=== PATIENT | male | born 1950 | race Caucasian/White ===

== ENCOUNTER 2016-10-30 16:07 | Emergency (ER) | payer OTHER ==
[2016-10-30 16:25] VITALS: BP 183/93
[2016-10-30] MEDS ORDERED: Ondansetron 4 MG/2 ML SDV IVPUSH ONE (16:27)
[2016-10-30] MEDS ORDERED: Sodium Chloride 0.9% 10 ML Syringe FLUSH PRN (16:27)
[2016-10-30] MEDS ORDERED: HYDROmorphone 1 MG/ML Syringe IVPUSH ONE (16:28)
[2016-10-30] MEDS ORDERED: Sodium Chloride 0.9% 1,000 ML IV SCH (16:30)
--- NOTE | 2016-10-30 17:55 | US ---
Limited abdominal ultrasound: Multiple real-time images of the upper right abdomen were obtained. Comparison: Previous abdominal ultrasound of 03/09/16. Liver is slightly echogenic raising the possibility of fatty infiltration. Several sludge balls are seen within the gallbladder. I do not see any definite shadowing gallstones. No gallbladder wall thickening or biliary duct dilatation is seen. Pancreas is incompletely seen. Visualized portions of the pancreas are within normal limits. Right kidney shows no hydronephrosis or mass and has a length of 9.7 cm. Impression: 1. Possible fatty infiltration within the liver. 2. 2 sludge balls within the gallbladder. Prior ultrasound of 03/09/16 showed what appeared to be a single large gallstone with shadowing which interestingly is not appreciated on current exam. 3. Other portions of the right upper quadrant abdominal ultrasound are unremarkable. Diagnostic code #3
[2016-10-30] MEDS ORDERED: HYDROmorphone 0.5 MG/0.5 ML Syringe IVPUSH ONE (18:00)
--- NOTE | 2016-10-30 18:37 | EDM.PDOC ---
ED HPI GENERAL MEDICAL PROBLEM - General Chief Complaint: Abdominal Pain Stated Complaint: [facility] Time Seen by Provider: 10/30/16 16:21 Source of Information: Reports: Patient, Family History Limitations: Reports: No Limitations - History of Present Illness INITIAL COMMENTS - FREE TEXT/NARRATIVE: The patient presents with RUQ abdominal pain. The pain started 2 days ago. It is worse after he eats. He has nausea with it but no vomiting. He has no fever , chills, cough, chest pain, shortness of breath. He has a history of a gallstone. He had an US in February and it showed one. He had no trouble since. He has no diarrhea and no dysuria. Onset: Sudden Duration: Day(s): (2) Location: Reports: Abdomen Quality: Reports: Sharp Severity: Moderate Improves with: Reports: None Worsens with: Reports: None Context: Reports: Activity (After eating and eating makes it worse) Associated Symptoms: Reports: Nausea/Vomiting. Denies: Chest Pain, Cough, Fever /Chills, Shortness of Breath Right Upper Abdomen Pain Score (Numeric/FACES): 9 - Related Data Allergies Allergy/AdvReac Type Severity Reaction Status Date / Time No Known Allergies Allergy Verified 10/30/16 16:24 Home Meds: Home Meds Cholecalciferol (Vitamin D3) [Vitamin D3] 1,000 unit PO DAILY 10/30/16 [History] Ondansetron [Zofran ODT] 4 mg PO Q6H PRN #20 tab.dis 10/30/16 [Rx] Ranitidine [Zantac] 150 mg PO BID PRN 10/30/16 [History] oxyCODONE HCl/Acetaminophen [Percocet 5-325 mg Tablet] 1 - 2 each PO Q6HR PRN # 20 tablet 10/30/16 [Rx] Past Medical History HEENT History: Reports: Cataract, Impaired Vision Cardiovascular History: Reports: Hypertension Gastrointestinal History: Reports: Cholelithiasis, GERD - Past Surgical History HEENT Surgical History: Reports: Cataract Surgery Social & Family History - Tobacco Use Smoking Status *Q: Current Every Day Smoker Years of Tobacco use: 35 Packs/Tins Daily: 1 Second Hand Smoke Exposure: No - Caffeine Use Caffeine Use: Reports: Coffee - Recreational Drug Use Recreational Drug Use: No Drug Use in Last 12 Months: No ED ROS GENERAL - Review of Systems Review Of Systems: See Below Constitutional: Reports: No Symptoms HEENT: Reports: No Symptoms Respiratory: Reports: No Symptoms Cardiovascular: Reports: No Symptoms Endocrine: Reports: No Symptoms GI/Abdominal: Reports: Abdominal Pain (RUQ) : Reports: No Symptoms Musculoskeletal: Reports: No Symptoms ED EXAM, GI/ABD - Physical Exam Exam: See Below Exam Limited By: No Limitations General Appearance: Alert, No Apparent Distress Ears: Normal External Exam Nose: Normal Inspection Head: Atraumatic, Normocephalic Neck: Normal Inspection Respiratory/Chest: No Respiratory Distress, Lungs Clear, Normal Breath Sounds Cardiovascular: Regular Rate, Rhythm, No Edema, No Murmur GI/Abdominal Exam: Soft, No Organomegaly, No Mass, Tender (Moderate to the RUQ) Course - Vital Signs Last Recorded V/S: Last Vital Signs Temp 98.1 F 10/30/16 16:19 Pulse 52 L 10/30/16 16:19 Resp 16 10/30/16 16:19 BP 183/93 H 10/30/16 16:19 Pulse Ox 95 10/30/16 16:19 - Orders/Labs/Meds Orders: Active Orders 24 hr Category Date Time Status Peripheral IV Care [RC] . DIRECTED Care 10/30/16 16:27 Active Sodium Chloride 0.9% [Normal Saline] 1,000 ml Med 10/30/16 16:30 Active IV ASDIRECTED Sodium Chloride 0.9% [Saline Flush] Med 10/30/16 16:27 Active 10 ml FLUSH ASDIRECTED PRN ED Antiemetic Medication Reflex [OM.PC] Stat Oth 10/30/16 16:27 Ordered Peripheral IV Insertion Adult [OM.PC] Stat Oth 10/30/16 16:27 Ordered Medication Orders Sodium Chloride (Normal Saline) 1,000 mls @ 125 mls/hr IV ASDIRECTED JUAN Last Admin: 10/30/16 16:42 Dose: 125 mls/hr Sodium Chloride (Saline Flush) 10 ml FLUSH ASDIRECTED PRN PRN Reason: Keep Vein Open Last Admin: 10/30/16 18:21 Dose: 10 ml Labs: Laboratory Tests 10/30/16 10/30/16 Range/Units 17:17 17:17 WBC 10.15 H (4.23-9.07) K/mm3 RBC 4.74 (4.63-6.08) M/mm3 Hgb 15.8 (13.7-17.5) gm/L Hct 45.2 (40.1-51.0) % MCV 95.4 H (79.0-92.2) fl MCH 33.3 H (25.7-32.2) pg MCHC 35.0 (32.2-35.5) g/dl RDW Std Deviation 46.0 H (35.1-43.9) fL Plt Count 232 (163-337) K/mm3 MPV 9.5 (9.4-12.3) fl Neut % (Auto) 80.4 H (34.0-67.9) % Lymph % (Auto) 12.0 L (21.8-53.1) % [place] % (Auto) 7.2 (5.3-12.2) % Eos % (Auto) 0.1 L (0.8-7.0) Baso % (Auto) 0.2 (0.1-1.2) % Neut # (Auto) 8.16 H (1.78-5.38) K/mm3 Lymph # (Auto) 1.22 L (1.32-3.57) K/mm3 [place] # (Auto) 0.73 (0.30-0.82) K/mm3 Eos # (Auto) 0.01 L (0.04-0.54) K/mm3 Baso # (Auto) 0.02 (0.01-0.08) K/mm3 Sodium 138 (136-145) mEq/L Potassium 4.2 (3.5-5.1) mEq/L Chloride 102 (98-107) mEq/L Carbon Dioxide 26 (21-32) mEq/L Anion Gap 14.2 (5-15) BUN 14 (7-18) mg/dL Creatinine 1.1 (0.7-1.3) mg/dL Est Cr Clr Drug Dosing 66.95 mL/min Estimated GFR (MDRD) > 60 (>60) mL/min BUN/Creatinine Ratio 12.7 L (14-18) Glucose 131 H (80-115) mg/dL Calcium 9.0 (8.5-10.1) mg/dL Total Bilirubin 0.5 (0.2-1.0) mg/dL AST 50 H (15-37) U/L ALT 79 H (16-63) U/L Alkaline Phosphatase 87 (46-116) U/L Total Protein 7.2 (6.4-8.2) g/dl Albumin 3.5 (3.4-5.0) g/dl Globulin 3.7 gm/dL Albumin/Globulin Ratio 1.0 (1-2) Lipase 130 (73-393) U/L Meds: Medications Generic Name Dose Route Start Last Admin Trade Name Freq PRN Reason Stop Dose Admin Sodium Chloride 1,000 mls @ 125 mls/hr 10/30/16 16:30 10/30/16 16:42 Normal Saline IV 125 mls/hr ASDIRECTED JUAN Administration Sodium Chloride 10 ml 10/30/16 16:27 10/30/16 18:21 Saline Flush FLUSH 10 ml ASDIRECTED PRN Administration Keep Vein Open Discontinued Medications Generic Name Dose Route Start Last Admin Trade Name Freq PRN Reason Stop Dose Admin Hydromorphone HCl 1 mg 10/30/16 16:28 10/30/16 16:42 Dilaudid IVPUSH 10/30/16 16:29 1 mg ONETIME ONE Administration Hydromorphone HCl 0.5 mg 10/30/16 18:00 10/30/16 18:11 Dilaudid IVPUSH 10/30/16 18:01 0.5 mg ONETIME ONE Administration Ondansetron HCl 4 mg 10/30/16 16:27 10/30/16 16:43 Zofran IVPUSH 10/30/16 16:28 4 mg ONETIME ONE Administration - Re-Assessments/Exams Free Text/Narrative Re-Assessment/Exam: 10/30/16 18:34 I ordered an IV NS at 125mL/hr, zofran 4mg IV and dilaudid. His WBC is elevated at 10.15. His glucose was elevated at 131. His AST was slightly elevated at 50 and his ALT was elevated at 79. His lipase was negative. I did an US and it showed possible fatty infiltration within the liver. 2 sludge balls within the gallbladder. He had more pain so I gave him more dilaudid. 10/30/16 18:43 He has nausea so I will give him some reglan 10mg IV. Departure - Departure Time of Disposition: 18:45 Disposition: Home, Self-Care 01 Condition: Good Clinical Impression: Sludge in gallbladder, Biliary colic Abdominal pain Qualifiers: Abdominal location: right upper quadrant Qualified Code(s): R10.11 - Right upper quadrant pain - Discharge Information Prescriptions: oxyCODONE HCl/Acetaminophen [Percocet 5-325 mg Tablet] 1 - 2 each PO Q6HR PRN # 20 tablet PRN Reason: Pain Ondansetron [Zofran ODT] 4 mg PO Q6H PRN #20 tab.dis PRN Reason: Nausea/Vomiting Referrals: Kylah Patterson DO [Primary Care Provider] - Forms: ED Department Discharge Additional Instructions: Avoid fried fatty foods. Take the percocet as needed for pain. Take the zofran for nausea and vomiting. - My Orders Last 24 Hours: My Active Orders 10/30/16 16:27 Peripheral IV Care [RC] . DIRECTED Sodium Chloride 0.9% [Saline Flush] 10 ml FLUSH ASDIRECTED PRN ED Antiemetic Medication Reflex [OM.PC] Stat Peripheral IV Insertion Adult [OM.PC] Stat 10/30/16 16:30 Sodium Chloride 0.9% [Normal Saline] 1,000 ml IV ASDIRECTED - Assessment/Plan Last 24 Hours: My Active Orders 10/30/16 16:27 Peripheral IV Care [RC] . DIRECTED Sodium Chloride 0.9% [Saline Flush] 10 ml FLUSH ASDIRECTED PRN ED Antiemetic Medication Reflex [OM.PC] Stat Peripheral IV Insertion Adult [OM.PC] Stat 10/30/16 16:30 Sodium Chloride 0.9% [Normal Saline] 1,000 ml IV ASDIRECTED
[2016-10-30] MEDS ORDERED: Metoclopramide 10 MG/2 ML SDV IVPUSH ONE (18:46)
== END 2016-10-30 19:10 | disposition home or self-care (01) ==
LOC: JD.ED 16:07
DX: K82.8 Other specified diseases of gallbladder (principal); K80.50 Calculus of bile duct without cholangitis or cholecystitis without obstruction; H54.7 Unspecified visual loss; I10 Essential (primary) hypertension; K21.9 Gastro-esophageal reflux disease without esophagitis; F17.210 Nicotine dependence, cigarettes, uncomplicated; Z79.899 Other long term (current) drug therapy
CPT/HCPCS: 36415; 76705; 80053; 83690; 85025; 96361; 96374; 96375; 96376; 99284; J1170; J2405; J2765; J7040; J7050

== ENCOUNTER 2018-12-23 08:46 | Day surgery (SDC) | payer OTHER ==
[~2018-12-23 08:46] MED LIST: Bupivacaine 0.5% 30 ML SDV ONE; Iopamidol 612 MG/ML 50 ML SDV ONE; Lactated Ringers 1,000 ML IV SCH; Lidocaine 1%/Sod Bicarbonate in NS 8.4% 1 ML Syringe IDERM PRN; Sodium Chloride 0.9% 10 ML Syringe FLUSH PRN; Sodium Chloride 0.9% 50 ML SDV ONE
[2018-12-23] MEDS ORDERED: Propofol 200 MG/20 ML SDV ONE (09:00)
[2018-12-23] MEDS ORDERED: Lidocaine 1% 4 ML ONE (09:01)
[2018-12-23] MEDS ORDERED: Rocuronium 50 MG/5 ML Vial ONE (09:01)
[2018-12-23] MEDS ORDERED: fentaNYL 250 MCG/5 ML SDV ONE (09:02)
[2018-12-23] MEDS ORDERED: Midazolam 1 MG/ML 2 ML SDV ONE (09:03)
--- NOTE | 2018-12-23 09:17 | PCM.PREANE ---
Preanesthetic Assessment - Anesthesia/Transfusion/Family Hx Anesthesia History: Prior Anesthesia Without Reaction Family History of Anesthesia Reaction: No Transfusion History: No Prior Transfusion(s) - Review of Systems General: No Symptoms Pulmonary: Shortness of Breath Cardiovascular: No Symptoms Gastrointestinal: No Symptoms Neurological: No Symptoms Other: Reports: None - Physical Assessment NPO Status Date: 12/22/18 NPO Status Time: 22:00 ASA Class: 2 Mental Status: Alert & Oriented x3 Airway Class: Mallampati = 2 Dentition: Reports: Dentures (upper) Thyro-Mental Finger Breadths: 3 Mouth Opening Finger Breadths: 3 ROM/Head Extension: Full Lungs: Clear to Auscultation, Normal Respiratory Effort (SOB with activity) Cardiovascular: Regular Rate, Regular Rhythm - Allergies Allergies/Adverse Reactions: Allergies Allergy/AdvReac Type Severity Reaction Status Date / Time No Known Allergies Allergy Verified 12/22/18 09:59 - Anesthesia Plan Beta Eren: Metoprolol Med Last Dose Date: 12/22/18 Med Last Dose Time: 05:00 - Acknowledgements Anesthesia Type Planned: General Anesthesia Pt an Appropriate Candidate for the Planned Anesthesia: Yes Alternatives and Risks of Anesthesia Discussed w Pt/Guardian: Yes Pt/Guardian Understands and Agrees with Anesthesia Plan: Yes PreAnesthesia Questionnaire HEENT History: Reports: Cataract, Impaired Vision, Other (See Below) Other HEENT History: has dentures Cardiovascular History: Reports: Hypertension, Other (See Below) (hx r calf claudication) Respiratory History: Reports: SOB (with activity) Gastrointestinal History: Reports: Cholelithiasis, GERD Genitourinary History: Reports: None SPLICING SUPERVISOR History: Reports: None Musculoskeletal History: Reports: None Neurological History: Reports: None Psychiatric History: Reports: None Endocrine/Metabolic History: Reports: Vitamin D Deficiency Hematologic History: Reports: None Immunologic History: Reports: None Oncologic (Cancer) History: Reports: None Dermatologic History: Reports: None - Past Surgical History Head Surgeries/Procedures: Reports: None HEENT Surgical History: Reports: Cataract Surgery Other HEENT Surgeries/Procedures: Right eye cataract extraction, metal removed from bilateral eyes multiple times Cardiovascular Surgical History: Reports: None Respiratory Surgical History: Reports: None GI Surgical History: Reports: Colonoscopy Female Surgical History: Reports: None Male Surgical History: Reports: None Endocrine Surgical History: Reports: None Neurological Surgical History: Reports: None Musculoskeletal Surgical History: Reports: None Oncologic Surgical History: Reports: None Dermatological Surgical History: Reports: None - SUBSTANCE USE Smoking Status *Q: Current Every Day Smoker Days Per Week of Alcohol Use: 7 Number of Drinks Per Day: 3 Total Drinks Per Week: 21 Recreational Drug Use History: No - HOME MEDS Home Medications: Home Meds Cholecalciferol (Vitamin D3) [Vitamin D3] 5,000 unit PO Q48H 12/22/18 [History] Metoprolol Tartrate [Lopressor] 50 mg PO DAILY 12/22/18 [History] - CURRENT (IN HOUSE) MEDS Current Meds: Current Medications Lactated Ringer's (Ringers, Lactated) 1,000 mls @ 125 mls/hr IV ASDIRECTED JUAN Stop: 12/23/18 23:00 Lidocaine/Sodium Bicarbonate (Buffered Lidocaine 1% In Ns 8.4%) 0.25 ml IDERM ONETIME PRN PRN Reason: Prior to IV Start Stop: 12/23/18 18:00 Sodium Chloride (Saline Flush) 10 ml FLUSH ASDIRECTED PRN PRN Reason: Keep Vein Open Stop: 12/23/18 18:00 Discontinued Medications Bupivacaine HCl (Marcaine 0.5%) Confirm Administered Dose 30 ml .ROUTE .STK-MED ONE Stop: 12/23/18 08:23 Fentanyl (Sublimaze) Confirm Administered Dose 250 mcg .ROUTE .STK-MED ONE Stop: 12/23/18 09:03 Lidocaine HCl (Xylocaine-Mpf 1%) Confirm Administered Dose 4 mls @ as directed .ROUTE .STK-MED ONE Stop: 12/23/18 09:02 Iopamidol (Isovue-300 (61%)) Confirm Administered Dose 50 ml .ROUTE .STK-MED ONE Stop: 12/23/18 08:23 Midazolam HCl (Versed 1 Mg/Ml) Confirm Administered Dose 2 mg .ROUTE .STK-MED ONE Stop: 12/23/18 09:04 Propofol (Diprivan 20 Ml) Confirm Administered Dose 200 mg .ROUTE .STK-MED ONE Stop: 12/23/18 09:01 Rocuronium [place] (Zemuron) Confirm Administered Dose 50 mg .ROUTE .STK-MED ONE Stop: 12/23/18 09:02 Sodium Chloride (Normal Saline) Confirm Administered Dose 50 ml .ROUTE .STK-MED ONE Stop: 12/23/18 08:23
[2018-12-23] MEDS ORDERED: Metoprolol Tartrate 50 MG Tab PO SCH (09:30)
[2018-12-23] MEDS ORDERED: Ampicillin/Sulbactam Na 3 GM in Sodium Chloride 0.9% 100 ML IV SCH (10:00)
[2018-12-23] MEDS ORDERED: Ondansetron 4 MG/2 ML SDV ONE (10:49)
[2018-12-23] MEDS ORDERED: Dexamethasone 4 MG/ML 5 ML MDV ONE (10:50)
[2018-12-23] MEDS ORDERED: HYDROmorphone 0.5 MG/0.5 ML Syringe ONE ×2 (10:53→11:18)
[2018-12-23] MEDS ORDERED: Lactated Ringers 1,000 ML ONE (11:04)
[2018-12-23] MEDS ORDERED: diphenhydrAMINE 50 MG/ML SDV IVPUSH PRN (11:10)
[2018-12-23] MEDS ORDERED: fentaNYL 100 MCG/2 ML SDV IVPUSH PRN (11:10)
[2018-12-23] MEDS ORDERED: Ondansetron 4 MG/2 ML SDV IVPUSH PRN (11:10)
[2018-12-23] MEDS ORDERED: HYDROmorphone 0.5 MG/0.5 ML Syringe IVPUSH PRN (11:10)
[2018-12-23] MEDS ORDERED: Neostigmine Methylsulfate 1 MG/ML 5 ML Syringe ONE (11:23)
[2018-12-23] MEDS ORDERED: Ketorolac 30 MG/ML SDV ONE (11:27)
--- NOTE | 2018-12-23 11:50 | PCM.OPNOTE ---
- General Post-Op/Procedure Note Date of Surgery/Procedure: 12/23/18 Operative Procedure(s): lap sonja with ioc Pre Op Diagnosis: cholelithiasis Post-Op Diagnosis: Same Anesthesia Technique: General ET Tube Primary Surgeon: Jeremiah Campos EBL in mLs: 10 Complications: None Condition: Good
--- NOTE | 2018-12-23 11:53 | PCM.POSTAN ---
POST ANESTHESIA ASSESSMENT - MENTAL STATUS Mental Status: Alert, Oriented - VITAL SIGNS Vital Signs: Last Vital Signs Temp 36.4 C 12/23/18 08:55 Pulse 69 12/23/18 09:28 Resp 16 12/23/18 08:55 BP 156/89 H 12/23/18 09:28 Pulse Ox 97 12/23/18 08:55 - RESPIRATORY Respiratory Status: Respiratory Rate WNL, Airway Patent, O2 Saturation Stable - CARDIOVASCULAR CV Status: Pulse Rate WNL, Blood Pressure Stable - GASTROINTESTINAL GI Status: No Symptoms - PAIN Pain Score: 0 - POST OP HYDRATION Hydration Status: Adequate & Stable
--- NOTE | 2018-12-23 11:59 | CR ---
Operative cholangiogram: Multiple fluoroscopic spot views utilizing C-arm device were obtained during operative cholangiogram study. Opacification of the CBD and CHD as well as small portion of the intrahepatic duct is noted. Contrast noted within the duodenum. No filling defects are seen. No biliary duct dilatation is seen. Impression: 1. No abnormality is seen on operative cholangiogram study. Diagnostic code #1
--- NOTE | 2018-12-23 12:33 | PCM48HPAN ---
Post Anesthesia Note - EVALUATION WITHIN 48HRS OF ANESTHETIC Vital Signs in Normal Range: Yes Patient Participated in Evaluation: Yes Respiratory Function Stable: Yes Airway Patent: Yes Cardiovascular Function Stable: Yes Hydration Status Stable: Yes Pain Control Satisfactory: Yes Nausea and Vomiting Control Satisfactory: Yes Mental Status Recovered: Yes Vital Signs: Last Vital Signs Temp 36.3 C 12/23/18 12:30 Pulse 69 12/23/18 09:28 Resp 10 L 12/23/18 12:30 BP 105/71 12/23/18 12:30 Pulse Ox 95 12/23/18 12:30
[2018-12-23 14:16] VITALS: BP 103/74; PULSE 47
--- NOTE | 2018-12-24 08:24 | OR ---
DATE OF OPERATION: 12/23/2018 SURGEON: Jeremiah Campos MD PREOPERATIVE DIAGNOSIS: Cholelithiasis. POSTOPERATIVE DIAGNOSIS: Cholelithiasis. OPERATION PERFORMED: 1. Laparoscopic cholecystectomy. 2. Intraoperative cholangiogram. FINDINGS: Multiple adhesions of the liver obliterating the sub-diaphragmatic space with gallbladder involved in these adhesions with stone at the neck of the gallbladder. It was not impacted. The cholangiogram was normal. It is showing common right and left hepatic duct, free flow of dye into the duodenum without any dilatation. ANESTHESIA: Procedure done under general anesthetic. ESTIMATED BLOOD LOSS: 10 mL. DESCRIPTION OF PROCEDURE: The patient was taken to the operating room, placed in a supine position, connected to the monitoring equipment, and given general anesthetic and intubated. Antibiotics were given. SCDs were placed. The abdomen was clipped and prepped with chlorhexidine, alcohol prep, and draped off in a sterile fashion. An incision was made just below the umbilicus and using a 10 mm Opti port, the abdominal cavity was entered and pneumoperitoneum was placed. A 5 mm 0-degree camera was then inserted showing adhesions of the gallbladder right upper quadrant with rotation of the liver to the right. A 10 mm trocar was placed in the epigastric position. This was placed through the ligamentum teres, which was then taken down with electrocautery to allow access to the gallbladder. Under direct vision, a 10 mm trocar was placed in the right lateral and right upper quadrant. Fundus of the gallbladder was grasped. An attempt to dissect this from the adhesions was begun, but was pulling the gallbladder away from the liver. This was then stopped. The adhesions were left in place. Fundus of the gallbladder retracted cephaladly, and the patient placed in reverse Trendelenburg with a rightward tilt. Fundus of the gallbladder was free, and this was retracted in a caudal position. Calot's triangle was then dissected out showing cystic duct, Myron pouch junction, and cystic plate. Cystic artery was taken down and returned between 2 clips. This allowed exposure to the cystic duct, which was then immobilized and opened, and a cholangiocatheter was inserted and cholangiogram was then obtained using contrast material diluted with equal parts of saline in a C-arm. This showed the above findings. The cholangiocatheter was removed. Two clips placed on the cystic duct, cystic duct cut, and the gallbladder was then dissected from the attachments to the liver with electrocautery. This came up to the fundus where the gallbladder was being from the liver, and this was eased off from the gallbladder without disturbing the liver. Surgicel was then placed in the area where the gallbladder had come off the liver, and there was no bleeding. The gallbladder was then placed in an Endobag and removed from the abdominal cavity, and the camera was re-inserted showing no bleeding, and this completed the intraabdominal portion of the procedure. The ports and pneumoperitoneum were removed, and the epigastric port having been enlarged was closed with interrupted 3-0 Vicryl suture in the deep tissues and the skin with subdermal 4- 0 Dexon suture. Steri-Strips were placed in the ports and each port anesthetized with 0.5% Marcaine. This completed the procedure. The patient tolerated the procedure, sent to recovery room in a stable condition. ALBINOODAL /[id number]
== END 2018-12-23 13:54 | disposition home or self-care (01) ==
LOC: JD.SDS 08:46
PROVIDERS: ATTEND Surgery
DX: K80.10 Calculus of gallbladder with chronic cholecystitis without obstruction (principal); K66.0 Peritoneal adhesions (postprocedural) (postinfection); K21.9 Gastro-esophageal reflux disease without esophagitis; I10 Essential (primary) hypertension; E55.9 Vitamin D deficiency, unspecified; F17.210 Nicotine dependence, cigarettes, uncomplicated
CPT/HCPCS: 47563; 74300; 93005; A9270; J0295; J1100; J1170; J1885; J2001; J2250; J2405; J2704; J2710; J3010; J3490; J7030; J7120; Q9967; 00790